=== PATIENT | female | born 1955 | race Caucasian/White ===

== ENCOUNTER 2021-01-22 02:34 | Observation (INO) | payer BC ==
[2021-01-22 03:58] LABS: Anion Gap 17 mmol/L (10-20); BUN (Urea Nitrogen) 23 mg/dL (9.8-20.1); Calc. Creatinine Clearance 0 mL/min (70-130); Calcium 9.2 mg/dL (7.8-10.44); Carbon Dioxide 21 mmol/L (23-31); Chloride 104 mmol/L (98-107); Glucose 409 mg/dL (80-115); Potassium 4.4 mmol/L (3.5-5.1); Sodium 138 mmol/L (136-145)
[2021-01-22 04:09] LABS: Troponin I 0.311 ng/mL (< 0.028)
[2021-01-22] MEDS ORDERED: Ondansetron ODT 4 MG TAB PO PRN (04:26)
[2021-01-22] MEDS ORDERED: Dextrose 50% Abboject 50 ML SYRINGE SLOW IVP PRN (04:26)
[2021-01-22] MEDS ORDERED: HumaLOG 300 UNITS/3 ML VIAL SC PRN ×3 (04:26→21:00)
[2021-01-22] MEDS ORDERED: Dextrose 5% in Water 1,000 ML IV PRN (04:26)
[2021-01-22] MEDS ORDERED: Ondansetron PF 4 MG/2 ML Vial IVP PRN (04:26)
[2021-01-22 04:27] VITALS: BMI 25.3
[2021-01-22 05:35] LABS: Hemoglobin A1c Greater than 14.0 % (4.0-6.0)
[2021-01-22] MEDS: Levothyroxine Sodium 112 MCG TAB PO SCH (06:12)
[2021-01-22 06:44] LABS: Troponin I 0.433 ng/mL (< 0.028)
[2021-01-22] MEDS: Enoxaparin Sodium 30 MG/0.3 ML SYRINGE SC SCH (08:08)
[2021-01-22] MEDS: Famotidine 20 MG TAB PO SCH (08:09)
[2021-01-22] MEDS: PARoxetine 20 MG TAB PO SCH (08:26)
[2021-01-22] MEDS: Spironolactone 25 MG TAB PO SCH (08:41)
[2021-01-22] MEDS: Carvedilol 6.25 MG TAB PO SCH ×2 (08:41→20:21)
[2021-01-22] MEDS: Hydrochlorothiazide 25 MG TAB PO SCH (08:42)
[2021-01-22] MEDS: Losartan 25 MG TAB PO SCH (08:42)
[2021-01-22] MEDS ORDERED: Furosemide 40 MG/4 ML VIAL SLOW IVP SCH (09:00)
[2021-01-22 09:31] LABS: Troponin I 0.585 ng/mL (< 0.028)
[2021-01-22] MEDS: HumuLIN 70/30 (300 UNITS/3 ML VIAL) SC SCH ×2 (09:40→20:27)
[2021-01-22] MEDS ORDERED: Ezetimibe 10 MG TAB PO SCH (21:00)
[2021-01-22] MEDS ORDERED: Atorvastatin Calcium 40 MG TAB PO SCH (21:00)
[2021-01-23] MEDS: Levothyroxine Sodium 112 MCG TAB PO SCH (05:16)
[2021-01-23 05:29] LABS: Anion Gap 14 mmol/L (10-20); BUN (Urea Nitrogen) 26 mg/dL (9.8-20.1); Calc. Creatinine Clearance 45 mL/min (70-130); Calcium 8.7 mg/dL (7.8-10.44); Carbon Dioxide 24 mmol/L (23-31); Chloride 105 mmol/L (98-107); Glucose 209 mg/dL (80-115); Potassium 3.9 mmol/L (3.5-5.1); Sodium 139 mmol/L (136-145)
[2021-01-23] MEDS: HumuLIN 70/30 (300 UNITS/3 ML VIAL) SC SCH (07:38)
[2021-01-23] MEDS: Enoxaparin Sodium 30 MG/0.3 ML SYRINGE SC SCH (07:42)
[2021-01-23] MEDS: Famotidine 20 MG TAB PO SCH (07:42)
[2021-01-23] MEDS: PARoxetine 20 MG TAB PO SCH (07:43)
[2021-01-23] MEDS: Carvedilol 6.25 MG TAB PO SCH (07:46)
[2021-01-23] MEDS: Spironolactone 25 MG TAB PO SCH (07:47)
[2021-01-23] MEDS: Losartan 25 MG TAB PO SCH (11:17)
[2021-01-23] MEDS: Hydrochlorothiazide 25 MG TAB PO SCH (11:17)
[2021-01-23 12:00] VITALS: BP 96/52; TEMP 97.4
[2021-01-24] MEDS ORDERED: Clopidogrel Bisulfate 75 MG TAB PO SCH (09:00)
== END 2021-01-23 14:16 | disposition home or self-care (01) ==
LOC: ERS 02:34 → 2SW 03:00
PROVIDERS: ADMIT Family Medicine; ATTEND Family Medicine
DX: I21.4 Non-ST elevation (NSTEMI) myocardial infarction (principal); I13.0 Hypertensive heart and chronic kidney disease with heart failure and stage 1 through stage 4 chronic kidney disease, or unspecified chronic kidney disease; E11.22 Type 2 diabetes mellitus with diabetic chronic kidney disease; N18.9 Chronic kidney disease, unspecified; I50.20 Unspecified systolic (congestive) heart failure; I25.10 Atherosclerotic heart disease of native coronary artery without angina pectoris; E78.00 Pure hypercholesterolemia, unspecified; E03.9 Hypothyroidism, unspecified; Z86.73 Personal history of transient ischemic attack (TIA), and cerebral infarction without residual deficits; Z79.02 Long term (current) use of antithrombotics/antiplatelets; Z79.4 Long term (current) use of insulin; Z79.899 Other long term (current) drug therapy; Z95.5 Presence of coronary angioplasty implant and graft
CPT/HCPCS: 36415; 36416; 80048; 83036; 84443; 84484; 93005; 93010; 93306; 96372; 99285; G0378; J1650; J1815